=== PATIENT | male | born 1985 | race Caucasian/White ===

== ENCOUNTER 2018-08-20 13:25 | Emergency (ER) | payer OTHER ==
[~2018-08-20] VITALS: Ht 188 cm; Wt 140.6 kg
[2018-08-20 13:29] VITALS: BP 130/81
[2018-08-20] MEDS ORDERED: IBUPROFEN 800 MG TAB PO ONE (13:45)
[2018-08-20] MEDS ORDERED: ALBUTEROL SULFATE/IPRATROPIU 3 ML SOL IH ONE ×2 (13:45→14:30)
[2018-08-20] MEDS ORDERED: ACETAMINOPHEN EXTRA STRENGTH 500 MG TAB PO ONE (13:45)
[2018-08-20] MEDS ORDERED: DEXAMETHASONE 10 MG/ML VIAL IM ONE (13:45)
--- NOTE | 2018-08-20 14:05 | NUR ---
Breathing treatment administered at bedside by respiratory therapist.
--- NOTE | 2018-08-20 15:06 | NUR ---
FOLLOW UP [facility] THERAPY AND RESPIRATORY DRUG GIVEN ORDERED ENCOURAGED PATIENT FOR INTERMITENT DEEP BREATHING DURING THERAPY
--- NOTE | 2018-08-20 16:04 | NUR ---
PT TOLERATED BREATHING TX THEN D/C'D HOME. Patient discharged with v/s stable. Written and verbal after care instructions given and explained. Patient alert, oriented and verbalized understanding of instructions. Ambulatory with steady gait. All questions addressed prior to discharge. ID band removed. Patient advised to follow up with PMD. Patient educated on indication of medication including possible reaction and side effects. Opportunity to ask questions provided and answered.
[2018-08-20 16:05] VITALS: BP 129/75
== END 2018-08-20 16:04 | disposition home or self-care (01) ==
LOC: MED 13:25
DX: J20.9 Acute bronchitis, unspecified (principal); F17.200 Nicotine dependence, unspecified, uncomplicated; Z71.6 Tobacco abuse counseling
CPT/HCPCS: 71046; 94640; 96372; 99284; J1100; J7620